=== PATIENT | female | born 1995 | race Caucasian/White ===

== ENCOUNTER 2022-07-01 11:30 | Emergency (ER) | payer OTHER, SELFPAY ==
--- NOTE | ~2022-07-01 | XR_ITS ---
EXAMINATION: XR CHEST CLINICAL INFORMATION: Fever and tachycardia COMPARISON: None TECHNIQUE: 2 views of the chest were obtained. FINDINGS: No significant abnormality is noted involving the heart, lungs, mediastinum, bony thorax or soft tissues. XR/XR chest 2V IMPRESSION: No acute disease.
--- NOTE | ~2022-07-01 | CT_ITS ---
CT SOFT TISSUE NECK WITH CONTRAST CLINICAL INFORMATION: Sore throat. Question retropharyngeal abscess. COMPARISON: None available. TECHNIQUE: Following the intravenous administration of 60 mL of Omnipaque 350 intravenous contrast, helical imaging was performed in the axial plane with generation of coronal and sagittal reformatted images. This CT examination was performed using dose optimization techniques as appropriate, variously including the following: *Automated exposure control *Adjustment of mA and/or kV according to patient size (this includes techniques or standardized protocols for targeted exams where dose is matched to indication/reason for exam; i.e. extremities or head) *Use of iterative reconstruction technique FINDINGS: [place] tonsils exhibit heterogeneous enhancement and are enlarged suggesting palatine tonsillitis. No discrete peripherally enhancing fluid collection to suggest a peritonsillar abscess with assessment limited by dental streak artifact. No retropharyngeal fluid collections. Enlarged jugulodigastric lymph nodes bilaterally, most likely reactive. Laryngeal structures are closely opposed and symmetric. The thyroid gland, the submandibular glands, and the parotid glands are unremarkable. Orbital soft tissues are unremarkable. Intracranial compartment is unremarkable. Imaged upper lungs are clear. Imaged upper mediastinum is unremarkable. Congenital C6-C7 fusion. There are no acute osseous findings. There is mild mucosal thickening within the maxillary sinuses and within the ethmoid air cells bilaterally. The remaining paranasal sinuses and the mastoid air cells are clear. CT/CT soft tissue neck w IV con IMPRESSION: [place] tonsils exhibit heterogeneous enhancement and are enlarged suggesting palatine tonsillitis. No discrete peripherally enhancing fluid collection to suggest a peritonsillar abscess with assessment limited by dental streak artifact. No retropharyngeal fluid collections.
--- NOTE | 2022-07-01 11:37 | ED.SOB ---
HPI - SOB/Dyspnea General Chief Complaint: General Medical Stated Complaint: Strep/Difficulty breathing sent from urgent care Time Seen by Provider: 07/01/22 11:50 Related Data Previous Rx's Medication Instructions Recorded clindamycin HCl 300 mg capsule 300 mg PO Q8H #21 caps 07/01/22 Allergies Allergy/AdvReac Type Severity Reaction Status Date / Time No Known Allergies Allergy Verified 07/01/22 11:36 [facility] Social History Social History Advance Directives: No Advance Directives Information Provided: No Physical Exam Vital Signs: Vital Signs: Last Vital Signs Temp 98.6 F 07/01/22 12:00 Pulse 114 H 07/01/22 12:00 Resp 18 07/01/22 12:00 BP 115/72 07/01/22 12:00 Pulse Ox 94 07/01/22 12:00 O2 Del Method 07/01/22 12:00 BMI result Body Mass Index 38.6 Course Course Course Narrative: This is a rapid medical exam. Deferred additional HPI, ROS, PE to primary provider. 26 yo female healthy here with sore throat, diff breathing, body aches since last night. Seen at and sent in for concern for [employer]. Tolerated secretions okay. Received tylenol 2 hrs [employer]. On exam patient with bilateral tonsillar swelling/erythema. Uvula is midline. Patient with fever 101 triage, tachycardia with heart rate 130. Will send testing strep, flu, rsv, covid. Orders placed for labs, BCX, lactic, UA, ur preg, EKG. Will received IVF, decadron, toradol IVP. Patient to be immediately bedded. Medications Administered Discontinued Medications Generic Name Dose Route Start Last Admin Trade Name Ant PRN Reason Stop Dose Admin Dexamethasone Sodium Phosphate 10 mg 07/01/22 11:39 07/01/22 12:09 Dexamethasone Sod Phosphate 10 Mg/Ml Vial IVPUSH 07/01/22 11:40 Not Given ONCE ONE Sodium Chloride 1,000 mls @ 999 mls/hr 07/01/22 11:45 07/01/22 15:03 Ns IV 07/01/22 12:45 Infused .Q1H1M EMILIANO Infusion Sodium Chloride 1,000 mls @ 1,000 mls/hr 07/01/22 12:06 07/01/22 12:14 Ns IV 07/01/22 13:05 Not Given .Q1H ONE Clindamycin Phosphate 600 mg in 50 mls @ 100 mls/hr 07/01/22 14:02 07/01/22 16:12 Cleocin IV 07/01/22 14:31 Infused ONCE ONE Infusion Iohexol 60 ml 07/01/22 14:20 07/01/22 14:21 Iohexol 350 Mg/Ml 100 Ml Infus..Btl IV 07/01/22 14:21 60 ml ONCE ONE Administration Ketorolac Tromethamine 30 mg 07/01/22 11:39 07/01/22 12:10 Ketorolac Tromethamine 30 Mg/Ml Vial IVPUSH 07/01/22 11:40 Not Given ONCE ONE Ketorolac Tromethamine 15 mg 07/01/22 12:06 07/01/22 12:14 Ketorolac Tromethamine 15 Mg/Ml Vial IVPUSH 07/01/22 12:07 15 mg ONCE ONE Administration Methylprednisolone Sodium Succinate 125 mg 07/01/22 16:42 07/01/22 17:27 Methylprednisolone Sod Succ 125 Mg/2 Ml Vial IVPUSH 07/01/22 16:43 125 mg ONCE ONE Administration Ondansetron HCl 4 mg 07/01/22 16:12 07/01/22 16:17 Ondansetron Hcl 4 Mg/2 Ml Vial IVPUSH 07/01/22 16:13 4 mg ONCE ONE Administration MDM - SOB/Dyspnea Lab Data Result diagrams: 07/01/22 11:57 07/01/22 11:57 Labs: Lab Results 07/01/22 07/01/22 07/01/22 Range/Units 11:57 11:57 11:57 WBC 23.8 H (4.8-10.8) X10*3/uL RBC 5.15 (4.20-5.50) X10*6/uL Hgb 14.8 (12.0-16.0) g/dl Hct 43.3 (37.0-47.0) % MCV 84.1 (80.0-98.0) fL MCH 28.7 (27.0-33.0) pg MCHC 34.2 (31.0-35.0) g/dl RDW 13.0 (11.0-16.0) % Plt Count 302 (160-400) X10*3/uL MPV 9.7 (9.4-12.3) fL Immature Gran % (Auto) 0.5 H (0.0-0.4) % Neut % (Auto) 94.1 H (45-73) % Lymph % (Auto) 1.6 L (20-40) % [place] % (Auto) 3.4 (2-11) % Eos % (Auto) 0.0 (0-4) % Baso % (Auto) 0.4 (0-2) % Lymph # (Auto) 0.4 L (1.2-4.9) X10*3/uL [place] # (Auto) 0.8 (0.1-1.2) X10*3/uL Eos # (Auto) 0.0 (0.0-0.4) X10*3/uL Baso # (Auto) 0.1 (0.0-0.2) X10*3/uL Abs Immat Gran (auto) 0.12 H (0.00-0.03) X10*3/uL Absolute Neuts (auto) 22.4 H (2.0-8.3) x10*3/uL Absolute Nucleated RBC 0.000 (0.0-0.012) X10*3/uL Nucleated RBC % (auto) 0.0 (0.0-0.2) /100WBC Smear Tech's Comments VERIFIED Sodium 131 L (135-145) mmol/L Potassium 3.7 (3.3-5.1) mmol/L Chloride 104 (96-108) mmol/L Carbon Dioxide 22 (22-29) mmol/L Anion Gap 9 L (12-20) BUN 7 L (9-16) mg/dL Creatinine 0.70 (0.5-1.4) mg/dL Estim Creat Clear Calc 121.5 Estimated GFR > 60 Random Glucose 118 H (60-115) mg/dL Lactic Acid 1.0 (0.5-2.0) mmol/L Calcium 9.5 (8.4-10.2) mg/dL Urine Color Urine Appearance Urine pH (5.0-9.0) Ur Specific [place] (1.005-1.025) Urine Protein (Neg-Trace) mg/dL Urine Glucose (UA) (Negative) mg/dL Urine Ketones (Negative) mg/dL Urine Blood (Negative) Urine Nitrite (Negative) Ur Leukocyte Esterase (Negative) Urine RBC (0-2) /HPF Urine WBC (0-5) /HPF Ur Squamous Epith Cells (0-2) /HPF Urine Bacteria (None Seen) Hyaline Casts (0-2) /LPF Urine Test (NEGATIVE) Influenza Type A (PCR) (Negative) Influenza Type B (PCR) (Negative) RSV RNA Qual (PCR) (Negative) SARS-CoV-2 RNA (RT-PCR) (Negative) 07/01/22 07/01/22 07/01/22 Range/Units 11:57 12:23 12:23 WBC (4.8-10.8) X10*3/uL RBC (4.20-5.50) X10*6/uL Hgb (12.0-16.0) g/dl Hct (37.0-47.0) % MCV (80.0-98.0) fL MCH (27.0-33.0) pg MCHC (31.0-35.0) g/dl RDW (11.0-16.0) % Plt Count (160-400) X10*3/uL MPV (9.4-12.3) fL Immature Gran % (Auto) (0.0-0.4) % Neut % (Auto) (45-73) % Lymph % (Auto) (20-40) % [place] % (Auto) (2-11) % Eos % (Auto) (0-4) % Baso % (Auto) (0-2) % Lymph # (Auto) (1.2-4.9) X10*3/uL [place] # (Auto) (0.1-1.2) X10*3/uL Eos # (Auto) (0.0-0.4) X10*3/uL Baso # (Auto) (0.0-0.2) X10*3/uL Abs Immat Gran (auto) (0.00-0.03) X10*3/uL Absolute Neuts (auto) (2.0-8.3) x10*3/uL Absolute Nucleated RBC (0.0-0.012) X10*3/uL Nucleated RBC % (auto) (0.0-0.2) /100WBC Smear Tech's Comments Sodium (135-145) mmol/L Potassium (3.3-5.1) mmol/L Chloride (96-108) mmol/L Carbon Dioxide (22-29) mmol/L Anion Gap (12-20) BUN (9-16) mg/dL Creatinine (0.5-1.4) mg/dL Estim Creat Clear Calc Estimated GFR Random Glucose (60-115) mg/dL Lactic Acid (0.5-2.0) mmol/L Calcium (8.4-10.2) mg/dL Urine Color Yellow Urine Appearance Clear Urine pH 6.5 (5.0-9.0) Ur Specific [place] 1.015 (1.005-1.025) Urine Protein Negative (Neg-Trace) mg/dL Urine Glucose (UA) Negative (Negative) mg/dL Urine Ketones Negative (Negative) mg/dL Urine Blood Moderate (2+) H (Negative) Urine Nitrite Negative (Negative) Ur Leukocyte Esterase Negative (Negative) Urine RBC >20 H (0-2) /HPF Urine WBC 0-5 (0-5) /HPF Ur Squamous Epith Cells 3-5 (0-2) /HPF Urine Bacteria None Seen (None Seen) Hyaline Casts 0-2 (0-2) /LPF Urine Test NEGATIVE (NEGATIVE) Influenza Type A (PCR) NEGATIVE (Negative) Influenza Type B (PCR) NEGATIVE (Negative) RSV RNA Qual (PCR) NEGATIVE (Negative) SARS-CoV-2 RNA (RT-PCR) NEGATIVE (Negative) Discharge Plan Discharge Clinical Impression: Acute streptococcal pharyngitis Patient Disposition: Home, Self-Care Instructions: Strep Throat (ED) Prescriptions: New clindamycin HCl 300 mg capsule 300 mg PO Q8H Qty: 21 0RF Stand Alone Forms: Work/School Release Interventions: ED Discharge Assessment Last Done: 07/01/22 17:34 Discharge Date/Time: 07/01/22 17:35
[2022-07-01 11:38] VITALS: BP 122/68; PULSE 132; RESP 18; TEMP 38.7; O2SAT 96; BMI 38.6
--- NOTE | 2022-07-01 11:41 | ECG_ITS ---
Test Reason : SOB Blood Pressure : / mmHG Vent. Rate : 119 BPM Atrial Rate : 119 BPM P-R Int : 140 ms QRS Dur : 078 ms QT Int : 322 ms P-R-T Axes : 038 083 004 degrees QTc Int : 452 ms Sinus tachycardia Cannot rule out Anterior infarct , age undetermined Abnormal ECG No previous ECGs available Referred By: Lay Sarabia Electronically Signed By:FAUSTO BROWN MD
[2022-07-01 12:00] VITALS: BP 115/72; PULSE 114; RESP 18; TEMP 37; O2SAT 94
--- NOTE | 2022-07-01 12:05 | ED.FEVER ---
HPI - Fever General Chief Complaint: General Medical Stated Complaint: Strep/Difficulty breathing sent from urgent care Time Seen by Provider: 07/01/22 11:50 Source: patient Mode of arrival: ambulatory Limitations: no limitations History of Present Illness HPI Narrative: 26 yo female presents to the ED with fever, sore throat, mild cough for a couple of days. The patient was seen at an Urgent Care prior to arrival, and was told she had a peritonsilar abscess. Also of note was a heart rate in the 140-160 range. The patient was sent here for additional evaluation. The patient states that she has been taking Nyquil at night and had 1 dose of prednisone at home this morning. MD elicited complaint: fever and malaise Onset (ago): day(s) Context: sick contacts Exacerbating factors: nothing Relieving factors: nothing Related Data Previous Rx's Medication Instructions Recorded clindamycin HCl 300 mg capsule 300 mg PO Q8H #21 caps 07/01/22 Allergies Allergy/AdvReac Type Severity Reaction Status Date / Time No Known Allergies Allergy Verified 07/01/22 11:36 Review of Systems Review of Systems: Constitutional: Admits chills and fever(s) Eyes: Denies blurry vision and Denies diplopia ENT: Denies dizziness, admits to nasal congestion and sore throat Cardiovascular: Denies chest pain, Denies syncope and complains of rapid heart rate Respiratory: admits to cough and Denies wheezing Gastrointestinal: Denies diarrhea, Denies nausea and Denies vomiting Genitourinary: No vaginal bleeding. No discharge. Musculoskeletal: Denies back pain and admits to myalgias Neuro: Denies dizziness and Denies syncope Allergic/Immunologic: Denies wheezing, rash Neurologic: Denies Sensory deficit (Neuro) [facility] Past Medical History Attestation statement: The following information was validated with the patient. [facility] Narrative: Past medical family and social history is noncontributory Source: nursing notes reviewed Social History Social History Advance Directives: No Advance Directives Information Provided: No Physical Exam Vital Signs: Vital Signs: Last Vital Signs Temp 98.6 F 07/01/22 12:00 Pulse 114 H 07/01/22 12:00 Resp 18 07/01/22 12:00 BP 115/72 07/01/22 12:00 Pulse Ox 94 07/01/22 12:00 O2 Del Method 07/01/22 12:00 BMI result Body Mass Index 38.6 vital signs reviewed. Patient is febrile to 101.6, heart rate of 132 Const: General: cooperative, alert, awake and ill appearing ( mild) acutely Orientation/consciousness: patient oriented x3 HEENT: Head: Yes normal to inspection, Yes normocephalic and Yes atraumatic Ears: external ears normal General nose exam: Normal external nose present Face and sinus: Yes normal facial exam Mouth: Normal oral and palatal mucosa present Throat: No peritonsillar mass, Yes posterior oropharynx abnormal ( erythematous), No uvula laterally displaced and No uvular edema Eyes: Conjunctivae: conjunctivae normal Sclerae: sclerae normal Pupils: Equal, round and reactive pupils present EOM: EOMs intact bilaterally Neck: Neck: Yes normal visual inspection, Yes full ROM and Yes lymphadenopathy Resp: Effort & Inspection: normal respiratory effort and no cough Auscultation: clear to auscultation bilaterally, no rales and no wheezes Cardio: Rate: tachycardic Rhythm: regular rhythm Heart sounds: no murmurs GI: Inspection: Yes normal to inspection Palpation (GI): nontender : General: Yes no CVA tenderness Back/Spine/Pelvis: Back: no CVA tenderness Cervical Spine: normal cervical lordosis and cervical ROM normal Thoracic/Lumbar Spine: thoracic and lumbar spine normal to inspection Skin: General skin exam: no erythema, no jaundice and no mottling Neuro: General: patient oriented x3 and CN's II-XI intact bilaterally Cranial nerves: Yes Equal, round and reactive pupils present Gait exam (Neuro): Normal gait present Motor exam (neuro): 5/5 motor strength present throughout Sensory Exam: No Sensory deficit (Neuro) Extrem: General: Yes normal to inspection and Yes no clubbing, cyanosis or edema Medications Administered Discontinued Medications Generic Name Dose Route Start Last Admin Trade Name Freq PRN Reason Stop Dose Admin Dexamethasone Sodium Phosphate 10 mg 07/01/22 11:39 07/01/22 12:09 Dexamethasone Sod Phosphate 10 Mg/Ml Vial IVPUSH 07/01/22 11:40 Not Given ONCE ONE Sodium Chloride 1,000 mls @ 999 mls/hr 07/01/22 11:45 07/01/22 15:03 Ns IV 07/01/22 12:45 Infused .Q1H1M EMILIANO Infusion Sodium Chloride 1,000 mls @ 1,000 mls/hr 07/01/22 12:06 07/01/22 12:14 Ns IV 07/01/22 13:05 Not Given .Q1H ONE Clindamycin Phosphate 600 mg in 50 mls @ 100 mls/hr 07/01/22 14:02 07/01/22 16:12 Cleocin IV 07/01/22 14:31 Infused ONCE ONE Infusion Iohexol 60 ml 07/01/22 14:20 07/01/22 14:21 Iohexol 350 Mg/Ml 100 Ml Infus..Btl IV 07/01/22 14:21 60 ml ONCE ONE Administration Ketorolac Tromethamine 30 mg 07/01/22 11:39 07/01/22 12:10 Ketorolac Tromethamine 30 Mg/Ml Vial IVPUSH 07/01/22 11:40 Not Given ONCE ONE Ketorolac Tromethamine 15 mg 07/01/22 12:06 07/01/22 12:14 Ketorolac Tromethamine 15 Mg/Ml Vial IVPUSH 07/01/22 12:07 15 mg ONCE ONE Administration Ondansetron HCl 4 mg 07/01/22 16:12 07/01/22 16:17 Ondansetron Hcl 4 Mg/2 Ml Vial IVPUSH 07/01/22 16:13 4 mg ONCE ONE Administration MDM - Fever Lab Data Result diagrams: 07/01/22 11:57 07/01/22 11:57 Labs: Lab Results 07/01/22 07/01/22 07/01/22 Range/Units 11:57 11:57 11:57 WBC 23.8 H (4.8-10.8) X10*3/uL RBC 5.15 (4.20-5.50) X10*6/uL Hgb 14.8 (12.0-16.0) g/dl Hct 43.3 (37.0-47.0) % MCV 84.1 (80.0-98.0) fL MCH 28.7 (27.0-33.0) pg MCHC 34.2 (31.0-35.0) g/dl RDW 13.0 (11.0-16.0) % Plt Count 302 (160-400) X10*3/uL MPV 9.7 (9.4-12.3) fL Immature Gran % (Auto) 0.5 H (0.0-0.4) % Neut % (Auto) 94.1 H (45-73) % Lymph % (Auto) 1.6 L (20-40) % [place] % (Auto) 3.4 (2-11) % Eos % (Auto) 0.0 (0-4) % Baso % (Auto) 0.4 (0-2) % Lymph # (Auto) 0.4 L (1.2-4.9) X10*3/uL [place] # (Auto) 0.8 (0.1-1.2) X10*3/uL Eos # (Auto) 0.0 (0.0-0.4) X10*3/uL Baso # (Auto) 0.1 (0.0-0.2) X10*3/uL Abs Immat Gran (auto) 0.12 H (0.00-0.03) X10*3/uL Absolute Neuts (auto) 22.4 H (2.0-8.3) x10*3/uL Absolute Nucleated RBC 0.000 (0.0-0.012) X10*3/uL Nucleated RBC % (auto) 0.0 (0.0-0.2) /100WBC Smear Tech's Comments VERIFIED Sodium 131 L (135-145) mmol/L Potassium 3.7 (3.3-5.1) mmol/L Chloride 104 (96-108) mmol/L Carbon Dioxide 22 (22-29) mmol/L Anion Gap 9 L (12-20) BUN 7 L (9-16) mg/dL Creatinine 0.70 (0.5-1.4) mg/dL Estim Creat Clear Calc 121.5 Estimated GFR > 60 Random Glucose 118 H (60-115) mg/dL Lactic Acid 1.0 (0.5-2.0) mmol/L Calcium 9.5 (8.4-10.2) mg/dL Urine Color Urine Appearance Urine pH (5.0-9.0) Ur Specific [place] (1.005-1.025) Urine Protein (Neg-Trace) mg/dL Urine Glucose (UA) (Negative) mg/dL Urine Ketones (Negative) mg/dL Urine Blood (Negative) Urine Nitrite (Negative) Ur Leukocyte Esterase (Negative) Urine RBC (0-2) /HPF Urine WBC (0-5) /HPF Ur Squamous Epith Cells (0-2) /HPF Urine Bacteria (None Seen) Hyaline Casts (0-2) /LPF Urine Test (NEGATIVE) Influenza Type A (PCR) (Negative) Influenza Type B (PCR) (Negative) RSV RNA Qual (PCR) (Negative) SARS-CoV-2 RNA (RT-PCR) (Negative) 07/01/22 07/01/22 07/01/22 Range/Units 11:57 12:23 12:23 WBC (4.8-10.8) X10*3/uL RBC (4.20-5.50) X10*6/uL Hgb (12.0-16.0) g/dl Hct (37.0-47.0) % MCV (80.0-98.0) fL MCH (27.0-33.0) pg MCHC (31.0-35.0) g/dl RDW (11.0-16.0) % Plt Count (160-400) X10*3/uL MPV (9.4-12.3) fL Immature Gran % (Auto) (0.0-0.4) % Neut % (Auto) (45-73) % Lymph % (Auto) (20-40) % [place] % (Auto) (2-11) % Eos % (Auto) (0-4) % Baso % (Auto) (0-2) % Lymph # (Auto) (1.2-4.9) X10*3/uL [place] # (Auto) (0.1-1.2) X10*3/uL Eos # (Auto) (0.0-0.4) X10*3/uL Baso # (Auto) (0.0-0.2) X10*3/uL Abs Immat Gran (auto) (0.00-0.03) X10*3/uL Absolute Neuts (auto) (2.0-8.3) x10*3/uL Absolute Nucleated RBC (0.0-0.012) X10*3/uL Nucleated RBC % (auto) (0.0-0.2) /100WBC Smear Tech's Comments Sodium (135-145) mmol/L Potassium (3.3-5.1) mmol/L Chloride (96-108) mmol/L Carbon Dioxide (22-29) mmol/L Anion Gap (12-20) BUN (9-16) mg/dL Creatinine (0.5-1.4) mg/dL Estim Creat Clear Calc Estimated GFR Random Glucose (60-115) mg/dL Lactic Acid (0.5-2.0) mmol/L Calcium (8.4-10.2) mg/dL Urine Color Yellow Urine Appearance Clear Urine pH 6.5 (5.0-9.0) Ur Specific [place] 1.015 (1.005-1.025) Urine Protein Negative (Neg-Trace) mg/dL Urine Glucose (UA) Negative (Negative) mg/dL Urine Ketones Negative (Negative) mg/dL Urine Blood Moderate (2+) H (Negative) Urine Nitrite Negative (Negative) Ur Leukocyte Esterase Negative (Negative) Urine RBC >20 H (0-2) /HPF Urine WBC 0-5 (0-5) /HPF Ur Squamous Epith Cells 3-5 (0-2) /HPF Urine Bacteria None Seen (None Seen) Hyaline Casts 0-2 (0-2) /LPF Urine Test NEGATIVE (NEGATIVE) Influenza Type A (PCR) NEGATIVE (Negative) Influenza Type B (PCR) NEGATIVE (Negative) RSV RNA Qual (PCR) NEGATIVE (Negative) SARS-CoV-2 RNA (RT-PCR) NEGATIVE (Negative) ECG Data ECG #1: Attestation: I personally reviewed and interpreted this ECG as follows: ECG interpretation date: 07/01/22 ECG interpretation time: 12:16 Interpretation: sinus tachycardia at 119, normal intervals, normal axis, normal QTc. No old EKG for comparison Discharge Plan Discharge Clinical Impression: Acute streptococcal pharyngitis Patient Disposition: Home, Self-Care Instructions: Strep Throat (ED) Prescriptions: New clindamycin HCl 300 mg capsule 300 mg PO Q8H Qty: 21 0RF Stand Alone Forms: Work/School Release
[2022-07-01 12:10] LABS: Basophils Absolute Auto 0.1 X10*3/uL (0.0-0.2); Basophils Percent Auto 0.4 % (0-2); Hematocrit 43.3 % (37.0-47.0); Hemoglobin 14.8 g/dl (12.0-16.0); Imm Gran Abs Auto 0.12 X10*3/uL (0.00-0.03); Imm Gran Pct Auto 0.5 % (0.0-0.4); Lymphocytes Absolute Auto 0.4 X10*3/uL (1.2-4.9); Lymphocytes Percent Auto 1.6 % (20-40); MANUAL DIFF FLAG SCAN; Mean Corpuscular HGB Conc 34.2 g/dl (31.0-35.0); Mean Corpuscular Hemoglobin 28.7 pg (27.0-33.0); Mean Corpuscular Volume 84.1 fL (80.0-98.0); Mean Platelet Volume 9.7 fL (9.4-12.3); Monocytes Absolute Auto 0.8 X10*3/uL (0.1-1.2); Monocytes Percent Auto 3.4 % (2-11); Neutrophils Absolute Auto 22.4 x10*3/uL (2.0-8.3); Neutrophils Percent Auto 94.1 % (45-73); Platelet Count 302 X10*3/uL (160-400); Red Blood Count 5.15 X10*6/uL (4.20-5.50); SCAN SMEAR FLAG 1; White Blood Count 23.8 X10*3/uL (4.8-10.8)
[2022-07-01] MEDS: 0.9 % Sodium Chloride 1,000 ML 999 ML IV (12:13)
[2022-07-01] MEDS: Ketorolac Tromethamine 15 MG/ML VIAL IVPUSH (12:14)
[2022-07-01 12:33] LABS: Appearance Urine Clear; Color Urine Yellow; Glucose Urine UA Negative (Negative); Leukocyte Esterase Urine Negative (Negative); Nitrite Urine Negative (Negative); PH 6.5 (5.0-9.0); Specific Gravity - Urine 1.015 (1.005-1.025); UMIC TRIGGER UACC YES; Urine Blood Moderate (2+) (Negative); Urine Ketones Negative (Negative); Urine Protein Negative (Neg-Trace)
[2022-07-01 12:34] LABS: UPreg QC Valid YES; Urine Pregnancy NEGATIVE (NEGATIVE)
[2022-07-01 12:38] LABS: Bacteria Urine None Seen (None Seen); Hyaline Casts Urine 0-2 /LPF (0-2); RBC Urine >20 /HPF (0-2); WBC Urine 0-5 /HPF (0-5)
[2022-07-01 12:39] LABS: Anion Gap 9 (12-20); Blood Urea Nitrogen 7 mg/dL (9-16); Calcium 9.5 mg/dL (8.4-10.2); Carbon Dioxide 22 mmol/L (22-29); Chloride 104 mmol/L (96-108); Creatinine Clr Calc Pharmacy 121.5; Estimated Glomerular Filt Rate > 60; Glucose Random 118 mg/dL (60-115); Potassium 3.7 mmol/L (3.3-5.1); SLIDE REVIEW VERIFIED; Sodium 131 mmol/L (135-145)
[2022-07-01 13:29] LABS: Influenza A PCR NEGATIVE (Negative); Influenza B PCR NEGATIVE (Negative); Resp Syncy Virus RNA Qual PCR NEGATIVE (Negative); SARS COV2 PCR INHOUSE NEGATIVE (Negative)
[2022-07-01] MEDS: iohexoL 350 MG/ML 100 ML INFUS..BTL 60 ML IV (14:21)
[2022-07-01] MEDS: Clindamycin Phosphate/D5W 600 MG/50 ML PIGGYBACK 100 MG IV (15:01)
--- NOTE | 2022-07-01 15:07 | PC.NURSE ---
medicated per provider order.
[2022-07-01] MEDS: ondansetron HCL 4 MG/2 ML VIAL IVPUSH (16:17)
[2022-07-01] MEDS: methylPREDNISolone Sod Succ 125 MG/2 ML VIAL IVPUSH (17:27)
== END 2022-07-01 17:35 | disposition home or self-care (01) ==
PROVIDERS: Nurse Practitioner Family; Emergency Provider Emergency Medicine
DX: J02.0 Streptococcal pharyngitis (principal); R50.9 Fever, unspecified; R53.83 Other fatigue; R00.0 Tachycardia, unspecified; R06.02 Shortness of breath; Z20.822 Contact with and (suspected) exposure to COVID-19; Z79.899 Other long term (current) drug therapy
CPT/HCPCS: 0241U; 36415; 70491; 71046; 80048; 81001; 81025; 83605; 85025; 87040; 93005; 96374; 96375; 99284; J1885; J2405; J2930; Q9967